=== PATIENT | male | born 2000 | race Caucasian/White ===

== ENCOUNTER 2018-11-11 09:23 | Day surgery (SDC) | payer OTHER ==
[2018-11-10 11:17] VITALS: BMI 22.8
[2018-11-11] MEDS ORDERED: Oxymetazoline HCl 0.05% ( 15 ML ) ONE ×2 (09:56→10:11)
[2018-11-11] MEDS ORDERED: Lidocaine 1% w/Epinephrine 1:100K 30 ML VIAL ONE (10:11)
[2018-11-11] MEDS ORDERED: Bacitracin Zinc Ointment 30 gm TUBE ONE (10:11)
[2018-11-11] MEDS ORDERED: Midazolam HCl 2 mg/2 ml Vial ONE (10:14)
[2018-11-11] MEDS ORDERED: Fentanyl 100 MCG/2 ML VIAL ONE ×2 (10:14→13:02)
[2018-11-11] MEDS ORDERED: Morphine 4 MG/ML VIAL ONE (13:23)
[2018-11-11] MEDS ORDERED: Hydrocodone-Acetamin 15 ML UDCUP ONE (14:14)
--- NOTE | 2018-11-11 14:24 | OP ---
DATE OF PROCEDURE: 11/11/2018 PREOPERATIVE DIAGNOSES: Deformed nasal septal fracture, posttraumatic dorsal hump, deviated septum, hypertrophied inferior turbinates. POSTOPERATIVE DIAGNOSES: Deformed nasal septal fracture, posttraumatic dorsal hump, deviated septum, hypertrophied inferior turbinates. PROCEDURES PERFORMED: 1. Septoplasty. 2. Bilateral nasal endoscopy with submucous resection of inferior turbinates. 3. Open rhinoplasty with reduction of dorsal hump and reduction of displaced nasal bones. PROCEDURE IN DETAIL: After local anesthesia was infiltrated into the submucoperichondrial plane, a standard [place] incision was made with a #15 blade down to the level of the septal cartilage. The caudal elevator was used to elevate the mucoperichondrium from the underlying cartilage. We then proceeded beyond the bony cartilaginous junction and elevated the bony periosteum as well. Great attention was paid to the spur to prevent rent formation in the septal flap. A transcartilaginous incision was then made, while preserving an adequate dorsal and caudal cartilaginous strut for tip support. The deformed cartilage was removed and disarticulated from the bony cartilaginous junction and maxillary crest. This was placed in saline and would later be crushed and returned to the mucoperichondrial envelope. We then elevated the contralateral periosteum from the bony cartilaginous region and removed the deformed portions of the bone and bony spurs. The cartilage was then crushed and placed back into the mucoperichondrial envelope and the mucosa was re-approximated with a quilting stitch composed of rapidly absorbent gut suture. The [place] incision was also closed with interrupted gut suture. At the completion of the case, Bowie splints were placed and suture secured to the caudal septum. After consent was obtained, the patient was identified, brought to the operating room, and placed on the operating room table in the supine position. Consent was obtained, notifying the patient of the possibility of additional infections, bleeding, brain injury, and eye/orbital injury. The patient was placed on the operating room table, and general endotracheal anesthesia and intravenous access was obtained. The patient was then positioned, prepped and draped for endoscopic sinus surgery. Nasal preparation included trimming nasal vestibular hairs and spraying in topical Afrin. We then placed Afrin topical solution on nasal pledgets and strategically located them intranasally. The perinasal mucosa was injected with 1% lidocaine with 1:100,000 epinephrine in the submucoperichondrial plane of the septum, lateral nasal wall, and anterior to the uncinate. The patient was then prepped and draped in a sterile fashion and positioned for endoscopic sinus surgery. With the 0-degree endoscope, the patient underwent systematic nasal endoscopy. There were no suspicious internasal masses or lesions identified. We then focused our attention to the osteomeatal complex region under the middle turbinate. The inferior turbinates were visualized with a 0 degree endoscope and outfractured with a Elisa elevator. The inferior medial aspect was cauterized with the electrocautery. Hemostasis was obtained . After adequate airway was established, we turned our attention to the contralateral side and used a similar procedure. Again, a Elisa elevator was used to outfracture inferior turbinates under endoscopic visualization. With a suction cautery, the free inferior medial aspect was cauterized under direct visualization along the length of the inferior turbinate. At this point, we then turned our attention to the contralateral side and proceeded with endoscopic sinus surgery. At the completion of the case, Rice keel splints were placed in the ethmoid cavities after the ethmoidectomy. There were no complications. The patient tolerated the procedure well and was discharged to the recovery room in stable condition prior to return to the preoperative day stay with ultimate discharge home. Prescriptions for pain medication and antibiotics were provided. The patient received intramuscular Depo-Medrol during the case. We then proceeded with injecting the intracartilaginous region with 1% lidocaine. Bilateral intracartilaginous incisions were made and the plane was elevated over the dorsal hump. It was dramatically displaced to the right and a chisel was used to remove approximately the most prominent portion of the deformed bone. We were then able to successfully rasp the additional deformity to establish normal contour. The wound was irrigated. Intracartilaginous incision was closed and Bowie splints were placed as well as a [place] splint. The patient was awakened and taken to recovery room in stable condition prior to discharge home. Job ID: [id number]
[2018-11-11] MEDS ORDERED: Dexamethasone 20 MG/5 ML VIAL ONE (16:40)
[2018-11-11] MEDS ORDERED: Lidocaine 1% PF 5 ML VIAL ONE (16:40)
[2018-11-11] MEDS ORDERED: PROPOFOL 200 MG/20 ML VIAL ONE (16:40)
[2018-11-11] MEDS ORDERED: Ondansetron PF 4 MG/2 ML Vial ONE (16:40)
== END 2018-11-11 14:45 | disposition home or self-care (01) ==
LOC: SDC 09:23
PROVIDERS: ATTEND Specialist
PROC: 09BL0ZZ Excision of Nasal Turbinate, Open Approach (ICD-10-PCS; principal; 2018-11-11)
PROC: 0NSB0ZZ Reposition Nasal Bone, Open Approach (ICD-10-PCS; principal; 2018-11-11)
PROC: 09BM0ZZ Excision of Nasal Septum, Open Approach (ICD-10-PCS; principal; 2018-11-11)
DX: S02.2XXA Fracture of nasal bones, initial encounter for closed fracture (principal); J34.2 Deviated nasal septum; J34.3 Hypertrophy of nasal turbinates
CPT/HCPCS: 96374; J1100; J2001; J2250; J2270; J2405; J2704; J3010